=== PATIENT | male | born 1960 | race Caucasian/White ===

== ENCOUNTER → 2017-12-21 16:09 | Outpatient (CLI) | payer BC, SELFPAY ==
[2017-12-21 16:26] LABS: Basophil# 0.01 X10^3/uL; Basophil% 0.2 % (0-1); Eosinophil# 0.06 X10^3/uL; Hematocrit 41.8 % (40-54); Hemoglobin 14.8 g/dl (13.0-16.5); Lymphocyte % 23.3 % (19-41); Mean Corp Hgb Conc 35.4 g/gl (32-36); Mean Corpuscular Hgb 33.4 pg (27.0-32.0); Mean Corpuscular Volume 94.4 fL (80-94); Mean Platelet Vol. 9.9 fl (6.2-12.0); Monocyte% 8.3 % (0-10); Neutrophil # 4.04 X10^3/uL (2.7-7.7); POSITIVE COUNT NO; POSITIVE DIFFERENTIAL NO; POSITIVE MORPHOLOGY NO; Platelet Count 176 K/mm3 (150-450); RBC Distribution Width CV 12.9 % (11.6-14.6); RBC Distribution Width SD 44.2 fl (35.1-43.9); Red Blood Count 4.43 M/mm3 (4.6-6.2)
[2017-12-21 16:57] LABS: ALB/GLOB Ratio 1.1 RATIO (0.9-2.4); AST(SGOT) 38 U/L (15-37); Alanine Aminotransfer ALT/SGPT 67 U/L (16-61); Albumin, Serum 3.7 g/dL (3.2-5.0); Alkaline Phosphatase 82 U/L (45-117); Anion Gap 9 (5-15); BUN 24 mg/dL (7-18); BUN/Creat Ratio 21.1 RATIO (10-20); CPK Total, Creatine Kinase 178 U/L (39-308); Calcium,Total 8.4 mg/dL (8.5-10.1); Chloride 110 mmol/L (98-107); Creatinine, Serum 1.14 mg/dL (0.70-1.30); EST Glomerular Filtration Rate 70 mL/min (>60); Est Glom Filt Rate - Afr Amer 85 mL/min (>60); Globulin 3.3 g/dL (2.2-4.2); Glucose 92 mg/dL (74-106); Potassium 4.3 mmol/L (3.5-5.1); Sodium Level 144 mmol/L (136-145)
== END ==
PROVIDERS: Family Provider Internal Medicine; PCP Internal Medicine; Visit Provider Internal Medicine
DX: R07.9 Chest pain, unspecified (principal)
CPT/HCPCS: 36415; 80053; 82550; 84484; 85025

== ENCOUNTER → 2017-12-22 09:53 | Outpatient (CLI) | payer BC, SELFPAY ==
--- NOTE | 2017-12-22 09:55 | NM_ITS ---
CLINICAL: 56-year-old male with suspected parathyroid adenoma. 99m Tc SESTAMIBI DUAL PHASE PARATHYROID SCINTIGRAPHY COMPARISON: None available FINDINGS: Following the intravenous administration of 26.0 mCi of 99m Tc sestamibi, image acquisitions of the anterior neck at approximately 15 minutes and 2.0 hours post radiopharmaceutical provision reveal: 1. Immediate static blood pool acquisitions demonstrate distribution of pharmaceutical in the right-left thyroid colloid of the vaguely U-shaped thyroid gland. 2. Delayed images depict incomplete washout of the radiotracer from the visualized right-left lobe thyroid parenchyma. NM/Parathyroid Scan IMPRESSION: 1. NEGATIVE 99m Tc SESTAMIBI PARATHYROID IMAGING DUAL PHASE EXAMINATION. 2. There is no definitive typical scintigraphic evidence of parathyroid adenoma on the current evaluation. 3. Persistent visualization of the right-left thyroid colloid may be attributed to goiter formation, potentially thyroiditis. Electronically Signed: Deonte Brumfield DO at 23:44 EDT Tel , Service support ,
== END ==
PROVIDERS: Family Provider Internal Medicine; PCP Internal Medicine; Visit Provider Internal Medicine
DX: E34.9 Endocrine disorder, unspecified (principal)
CPT/HCPCS: 78070; A9500

== ENCOUNTER → 2018-01-12 06:04 | Outpatient (CLI) | payer BC, SELFPAY ==
--- NOTE | 2018-01-12 09:08 | STRESSREP ---
Stress Test Report Exercise myocardial perfusion stress test. 57-year-old man with a history of chest pain. Stress protocol: Resting EKG demonstrates normal sinus rhythm with rate of 64 beats minute normal intervals and noted resting blood pressure 122/88 mmHg. The patient exercised according to regular Fco protocol for a total duration of 10 minutes and 15 seconds. The patient completed 1 minute and 15 seconds into stage IV of the Fco protocol. The maximum heart rate attained was 134 bpm which was 82% of maximum predicted heart rate the maximum workload attained was 12.1 metabolic equivalents. At rest there were no ST or T-wave changes noted suggest ischemia at peak exercise no ST or T-wave changes were noted suggest ischemia no clinical angina was noted occasional premature ventricular complexes were present. The resting blood pressure is 122/88 peak blood pressure 158/70. Myocardial perfusion protocol. 14.3 mCi of technetium 99m sestamibi was injected at rest. The patient exercised according to regular Fco protocol for 10 minutes and 15 seconds attaining 82% maximum predicted heart rate and a workload of 12.1 metabolic equivalents at peak exercise 44.1 mCi of technetium 99m sestamibi was injected stress images were obtained stress and rest images were reconstructed and compared in the short axis vertical long and horizontal long axis. Gated images were also obtained. Perfusion SPECT analysis: Review of the stress images demonstrate normal uptake of tracer noted in all areas of the myocardium the resting images similarly demonstrate normal uptake of tracer noted in all areas of the myocardium. No areas of reversibility are noted suggest ischemia no previous infarct is noted. Gated SPECT analysis: The gated ejection fraction is 71%. Conclusion: Exercise myocardial perfusion stress test with no evidence of ischemia at a high workload. Preserved ejection fraction.
== END ==
PROVIDERS: Family Provider Internal Medicine; PCP Internal Medicine; Visit Provider Internal Medicine
DX: R07.9 Chest pain, unspecified (principal)
CPT/HCPCS: 78452; 93017; A9500; A4216

== ENCOUNTER → 2018-10-13 10:23 | Outpatient (CLI) | payer BC, SELFPAY ==
[2018-10-13 10:40] LABS: Bacteria 0 SEEN /hpf (None Seen); Mucous, Urine 0 SEEN /hpf (<or=2+); Squamous Epithelial Cells - UA 0 SEEN /hpf (0-5)
[2018-10-13 12:01] LABS: Absolute Lymphocyte Count 1.27 X10^3/ul (0.83-4.51); Basophil# 0.02 X10^3/uL; Basophil% 0.4 % (0-1); Color, Urine Yellow (Yellow); Eosinophil# 0.08 X10^3/uL; Eosinophils% 1.7 % (0-5); Glucose, Dipstick Normal (Normal); Hematocrit 42.4 % (40-54); Hemoglobin 15.1 g/dl (13.0-16.5); Ketone-Dipstick Negative (Negative); Leukocyte Esterase-Dipstick Negative /ul (Negative); Lymphocyte # 1.27 X10^3/ul (4.0); Lymphocyte % 26.3 % (19-41); Mean Corp Hgb Conc 35.6 g/gl (32-36); Mean Corpuscular Volume 92.6 fL (80-94); Mean Platelet Vol. 9.9 fl (6.2-12.0); Monocyte# 0.42 X10^3/uL; Monocyte% 8.7 % (0-10); Neutrophil # 3.03 X10^3/uL (2.7-7.7); Neutrophil % 62.7 % (47-70); Nitrite-Dipstick Negative (Negative); Occult Blood-Urine 10 /ul (Negative); Platelet Count 206 K/mm3 (150-450); Protein-Dipstick Negative (Negative); RBC Distribution Width CV 12.7 % (11.6-14.6); RBC Distribution Width SD 42.2 fl (35.1-43.9); Red Blood Count 4.58 M/mm3 (4.6-6.2); Urine Bilirubin Dipstick Negative (Negative); Urine Clarity Clear (Clear); Urine Urobilinogen Normal (Normal); White Blood Count 4.8 K/mm3 (4.4-11.0)
[2018-10-13 12:06] LABS: POSITIVE COUNT NO; POSITIVE DIFFERENTIAL NO; POSITIVE MORPHOLOGY NO
[2018-10-13 12:11] LABS: Red Blood Cells-Urine 0 SEEN /hpf (0-5); White Blood Cells 0-5 SEEN /hpf (0-5)
[2018-10-13 12:24] LABS: Vitamin B12 615 pg/mL (211-911); Vitamin D,25 Hydroxy 48.8 ng/mL (29.95-100.01)
[2018-10-13 12:32] LABS: ALB/GLOB Ratio 1.1 RATIO (0.9-2.4); AST(SGOT) 44 U/L (15-37); Alanine Aminotransfer ALT/SGPT 79 U/L (16-61); Albumin, Serum 3.7 g/dL (3.2-5.0); Alkaline Phosphatase 56 U/L (45-117); Anion Gap 9 (5-15); BUN 22 mg/dL (7-18); BUN/Creat Ratio 22.8 RATIO (10-20); Calcium,Total 8.5 mg/dL (8.5-10.1); Chloride 107 mmol/L (98-107); Creatinine, Serum 0.96 mg/dL (0.70-1.30); EST Glomerular Filtration Rate 85 mL/min (>60); Est Glom Filt Rate - Afr Amer 103 mL/min (>60); Free T3 3.4 pg/mL (2.18-3.98); Globulin 3.4 g/dL (2.2-4.2); Glucose 99 mg/dL (74-106); Potassium 3.9 mmol/L (3.5-5.1); Protein, Total 7.1 g/dL (6.4-8.2); Sodium Level 140 mmol/L (136-145); T4 Free Direct 1.18 ng/dL (0.76-1.46)
[2018-10-13 12:37] LABS: Microalbumin,Random Urine 8.7 mg/L (NO RANGE EST.); Microalbumin:Creatinine Ratio 6.4 mg/g CRE (<30 mg/g CRE)
== END ==
PROVIDERS: Family Provider Internal Medicine; PCP Internal Medicine; Referring Provider Internal Medicine; Visit Provider Internal Medicine
DX: E78.5 Hyperlipidemia, unspecified (principal); E53.8 Deficiency of other specified B group vitamins; E55.9 Vitamin D deficiency, unspecified; E03.9 Hypothyroidism, unspecified; I10 Essential (primary) hypertension
CPT/HCPCS: 36415; 80053; 80061; 81001; 82043; 82306; 82570; 82607; 83704; 84439; 84443; 84481; 85025

== ENCOUNTER → 2019-09-15 11:23 | Outpatient (CLI) | payer OTHER, SELFPAY ==
[2019-09-15 11:14] VITALS: BMI 30.6
--- NOTE | 2019-09-15 11:24 | RAD_ITS ---
STUDY: X-RAY CHEST REASON FOR EXAM: Male, 58 years old. ACUTE BRONCHITIS, COUGH TECHNIQUE: PA and lateral views of the chest. COMPARISON: 12/27/1929 FINDINGS: The lungs are clear and expanded. There is no demonstrated pleural abnormality. Normal size heart. Normal mediastinum and carina. Normal visualized pulmonary arteries. Normal visualized aortic arch and descending thoracic aorta. Normal visualized thoracic spine. Normal visualized ribs, clavicles, and shoulders. There is no demonstrated abnormality of the visualized soft tissue structures of the upper abdomen. RAD/Chest PA and Lateral IMPRESSION: Normal x-ray examination of the chest. Electronically Signed: Deonte Cummins MD at 11:51 EST Tel , Service support ,
== END ==
PROVIDERS: Family Provider Internal Medicine; PCP Internal Medicine; Referring Provider Physician Assistant Surgical; Visit Provider Physician Assistant Surgical
DX: J20.9 Acute bronchitis, unspecified (principal)
CPT/HCPCS: 71046

== ENCOUNTER → 2019-10-12 13:50 | Outpatient (CLI) | payer OTHER, SELFPAY ==
[2019-09-15 11:35] VITALS: BMI 36.2
--- NOTE | 2019-10-12 14:06 | ECHOCS_ITS ---
Reason For Study: TIA, HTN Procedure This was a 2D Doppler, Color Flow transthoracic echocardiogram. The study was technically difficult. Due to body habitus. Contrast injection was performed. Exam performed in department. Left Ventricle Normal LV size. The estimated ejection fraction is 65 %. No evidence for diastolic dysfunction. No regional wall motion abnormalities noted. Right Ventricle Normal RV size. Normal systolic function. Atria Normal left atrium. Normal right atrium. Bubble contrast study negative for right to left interatrial shunt. No doppler evidence for ASD. Mitral Valve There is no mitral valve stenosis. No mitral valve insufficiency. Tricuspid Valve There is no tricuspid stenosis. Unable to estimate RV systolic pressure due to insufficient tricuspid regurgitant envelope. Trivial tricuspid valve insufficiency. Aortic Valve Aortic sclerosis, no stenosis. Trisinus/trileaflet aortic valve. There is no aortic stenosis. No aortic valve insufficiency. Pulmonic Valve There is no pulmonic valvular stenosis. No pulmonic valve insufficiency. Great Vessels Normal aortic root. Pericardium/Pleural No pericardial effusion. Medication 22 gauge I.V. with prn adaptor inserted into right arm. Performed a rapid injection of agitated mix of 9 cc saline and 1cc air to assess for atrial septal defect. Diluted definity 4.0ml given slow IV push to enhance endocardial definition. MMode/2D Measurements & Calculations LVIDd: 5.2 cm IVSd: 1.1 cm Ao root diam: 3.1 cm LVIDs: 3.0 cm LVPWd: 1.2 cm FS: 43.1 % LAV(MOD-bp): 62.2 ml LA A4 area: 20.0 cm2 LA dimension(2D): 3.7 cm LAV(MOD-bp) Indexed: 26.1 ml/m2 LAV(MOD-sp2): 61.4 ml LAV(MOD-sp4): 57.9 ml Time Measurements MV dec time: 0.26 sec Doppler Measurements & Calculations MV E max justin: 73.7 cm/sec Lat Peak E' Justin: 11.1 cm/sec Med Peak E' Justin: 6.7 cm/sec MV A max justin: 78.8 cm/sec E/E' lat: 6.7 E/E' med: 11.0 MV E/A: 0.94 Ao V2 max: 149.6 cm/sec LV V1 max: 115.2 cm/sec PA V2 max: 135.6 cm/sec Ao max P.0 mmHg LV V1 max P.3 mmHg TR max justin: 243.5 cm/sec TR max P.7 mmHg Interpretation Summary The study was technically difficult. Diluted definity 4.0ml given slow IV push to enhance endocardial definition. The estimated ejection fraction is 65 %. No evidence for diastolic dysfunction. Bubble contrast study negative for right to left interatrial shunt. Trivial tricuspid valve insufficiency. The study was technically difficult. Ordering Physician: Dai Toure Referring Physician: Dai Toure Performed By: Genny Pillai, JERRYCS, RVT
--- NOTE | 2019-10-12 14:06 | CDU_ITS ---
Reason For Study: TIA Rt. Velocities/BP Lt. Velocities/BP Prox CCA 106.0/22.6 cm/sec. Prox CCA 100.3/27.8 cm/sec. Mid CCA 121.7/29.1 cm/sec. Mid CCA 109.1/27.8 cm/sec. Dist CCA 89.1/17.3 cm/sec. Dist CCA 93.8/33.3 cm/sec. Prox ICA 91.7/18.6 cm/sec. Prox ICA 83.9/23.4 cm/sec. Mid ICA 90.4/17.3 cm/sec. Mid ICA 97.4/17.6 cm/sec. Dist ICA 87.8/26.5 cm/sec. Dist ICA 81.4/32.3 cm/sec. Rt. ICA/CCA = .8. Lt. ICA/CCA = .9. Prox ECA 125.6/18.6 cm/sec. Prox ECA 122.9/24.3 cm/sec. Rt. Vert. 42.8/7.8 cm/sec. Lt. Vert. 48.3/17.6 cm/sec. Right Extracranial There is intimal thickening but no significant atherosclerotic plaque noted in the right common carotid artery. There is intimal thickening but no significant atherosclerotic plaque noted in the right internal carotid artery. There is intimal thickening but no significant atherosclerotic plaque noted in the right external carotid artery. Antegrade flow is noted in the right vertebral artery. Left Extracranial There is intimal thickening but no significant atherosclerotic plaque noted in the left common carotid artery. There is intimal thickening but no significant atherosclerotic plaque noted in the left internal carotid artery. There is intimal thickening but no significant atherosclerotic plaque noted in the left external carotid artery. Antegrade flow is noted in the left vertebral artery. Procedure Carotid Duplex [id number]. The exam was diagnostic. Exam performed in department. Interpretation Summary No significant atherosclerotic plaque or stenosis noted in the internal carotid arteries bilaterally. Flow within the vertebral arteries is antegrade bilaterally. Ordering Physician: Dai Toure Performed By: Jamie Pereyra RVT
--- NOTE | 2019-10-12 16:45 | MRI_ITS ---
STUDY: MRI BRAIN WITHOUT CONTRAST REASON FOR EXAM: Male, 58 years old. Word finding difficulty TECHNIQUE: Standardized multiplanar fat and water weighted pulse sequences were obtained. COMPARISON: 10 April 2014 FINDINGS: Brain parenchyma is intact without focal lesions, mass effect, extra parenchymal fluid collections, hydrocephalus or herniation. Major vascular flow structures are intact. Craniocervical junction is unremarkable. MRI/Brain without Contrast IMPRESSION: 1. Unremarkable brain MRI. Electronically Signed: Louis Hanna, at 18:25 EST Tel , Service support ,
== END ==
PROVIDERS: PCP Internal Medicine; Referring Provider Internal Medicine; Visit Provider Internal Medicine
DX: R47.89 Other speech disturbances (principal); Z86.73 Personal history of transient ischemic attack (TIA), and cerebral infarction without residual deficits
CPT/HCPCS: 70551; 93306; 93880; Q9957; A4216; C8929

== ENCOUNTER → 2019-10-28 10:10 | Outpatient (CLI) | payer OTHER, SELFPAY ==
[2019-09-15 11:35] VITALS: BMI 36.2
--- NOTE | 2019-10-28 10:12 | US_ITS ---
STUDY: ABDOMINAL ULTRASOUND REASON FOR EXAM: Male, 58 years old. ELEVATED LIVER ENZYMES TECHNIQUE: Transabdominal ultrasound was performed with real-time and static yin scale imaging. TECHNICAL QUALITY: Adequate. COMPARISON: None. FINDINGS: Liver: The liver measures 16.8 cm. There is increased echogenicity consistent with fatty infiltration. The bile ducts are within normal limits. There is hepatic color flow. The direction of portal flow is hepatopetal. There is no demonstrated mass lesion. Portal vein measurement: Gallbladder: Normal distended gallbladder. The gallbladder wall measures 2 mm. There is a negative sonographic Durbin''s sign. There is no pericholecystic fluid. There are no gallstones. Common Bile Duct (C.B.D.): The common bile duct measures 3 mm. Pancreas: There is nonvisualization of the pancreas. t. Spleen: There is splenomegaly. The spleen measures 12.2 cm. Right Kidney: Normal size of the right kidney. The right kidney measures 12.9 cm. Normal renal cortex. The right cortex measures 1.6 cm. There is no demonstrated renal mass or cyst. There is no right hydronephrosis. Left Kidney: Normal size of the left kidney. The left kidney measures 12.9 cm. Normal renal cortex. The left cortex measures 1.8 cm. There is no demonstrated renal mass or cyst. There is no left hydronephrosis. Aorta: No abdominal aortic aneurysm. I.V.C.: The IVC is patent. There is no ascites. US/Abdomen Complete IMPRESSION: 1. Fatty infiltration of the liver. 2. Mild splenomegaly. Electronically Signed: Deonte Cummins MD at 18:20 EST Tel , Service support ,
== END ==
PROVIDERS: PCP Internal Medicine; Referring Provider Internal Medicine; Visit Provider Internal Medicine
DX: R74.8 Abnormal levels of other serum enzymes (principal)
CPT/HCPCS: 76700

== ENCOUNTER → 2019-11-17 16:08 | Outpatient (CLI) | payer OTHER, SELFPAY ==
[2019-09-15 11:35] VITALS: BMI 36.2
[2019-11-17 17:40] LABS: AST(SGOT) 61 U/L (15-37); Alanine Aminotransfer ALT/SGPT 118 U/L (16-61); Albumin, Serum 3.6 g/dL (3.2-5.0); Alkaline Phosphatase 68 U/L (45-117); Bilirubin, Direct 0.13 mg/dL (0.00-0.30); Globulin 3.4 g/dL (2.2-4.2)
[2019-11-20 11:53] LABS: Hepatitis A AB, Total Negative (Negative)
[2019-11-20 19:13] LABS: Anti-Mitochondrial AB 26.5 Units (0.0-20.0)
== END ==
PROVIDERS: PCP Internal Medicine; Referring Provider Internal Medicine Gastroenterology; Visit Provider Internal Medicine Gastroenterology
DX: B15.9 Hepatitis A without hepatic coma (principal)
CPT/HCPCS: 36415; 80076; 83516; 86708

== ENCOUNTER → 2020-02-13 15:27 | Outpatient (CLI) | payer OTHER, SELFPAY ==
[2019-09-15 11:35] VITALS: BMI 36.2
[2020-02-13 18:15] LABS: AST(SGOT) 43 U/L (15-37); Alanine Aminotransfer ALT/SGPT 77 U/L (16-61); Albumin, Serum 3.6 g/dL (3.2-5.0); Alkaline Phosphatase 68 U/L (45-117); Bilirubin, Direct 0.17 mg/dL (0.00-0.30); Globulin 3.4 g/dL (2.2-4.2)
[2020-02-16 13:21] LABS: Anti-Mitochondrial AB 26.2 Units (0.0-20.0)
== END ==
PROVIDERS: PCP Internal Medicine; Referring Provider Internal Medicine Gastroenterology; Visit Provider Internal Medicine Gastroenterology
DX: B15.9 Hepatitis A without hepatic coma (principal); K76.0 Fatty (change of) liver, not elsewhere classified
CPT/HCPCS: 36415; 80076; 83516

== ENCOUNTER → 2020-08-17 10:54 | Outpatient (CLI) | payer OTHER, SELFPAY ==
[2019-09-15 11:35] VITALS: BMI 36.2
[2020-08-17 11:35] LABS: Absolute Neutrophil Count 9.7 X10^3/uL (2.0-7.7); Basophil# 0.15 X10^3/uL; Eosinophil# 0.76 X10^3/uL; Eosinophils% 5.2 % (0-5); Lymphocyte % 17.2 % (19-41); Mean Corp Hgb Conc 35.7 g/dL (32-36); Mean Corpuscular Hgb 33.6 pg (27.0-32.0); Mean Corpuscular Volume 94.2 fL (80-94); Mean Platelet Vol. 9.8 fl (6.2-12.0); Monocyte# 0.89 X10^3/uL; Monocyte% 6.1 % (0-10); NRBC Flagged by Analyzer 0 % (0-5); Neutrophil # 9.69 X10^3/uL (2.7-7.7); Neutrophil % 66.9 % (47-70); Platelet Count 222 K/mm3 (150-450); RBC Distribution Width CV 12.9 % (11.6-14.6); RBC Distribution Width SD 43.9 fl (35.1-43.9); Red Blood Count 4.46 M/mm3 (4.6-6.2); White Blood Count 14.5 K/mm3 (4.4-11.0)
[2020-08-17 12:04] LABS: D-Dimer Quantitative (DVT/PE) 9.66 FEU/ug/m (0.27-0.49)
[2020-08-17 12:07] LABS: ALB/GLOB Ratio 1.1 RATIO (0.9-2.4); AST(SGOT) 39 U/L (15-37); Alanine Aminotransfer ALT/SGPT 69 U/L (16-61); Albumin, Serum 3.2 g/dL (3.2-5.0); Alkaline Phosphatase 78 U/L (45-117); Anion Gap 7 (5-15); BUN 24 mg/dL (7-18); BUN/Creat Ratio 22.6 RATIO (10-20); Calcium,Total 8.3 mg/dL (8.5-10.1); Chloride 102 mmol/L (98-107); Creatinine, Serum 1.06 mg/dL (0.70-1.30); EST Glomerular Filtration Rate 76 mL/min (>60); Est Glom Filt Rate - Afr Amer 92 mL/min (>60); Globulin 2.9 g/dL (2.2-4.2); Glucose 103 mg/dL (74-106); Potassium 3.4 mmol/L (3.5-5.1); Protein, Total 6.1 g/dL (6.4-8.2); Sodium Level 134 mmol/L (136-145)
[2020-08-21 07:04] LABS: SARS-COV-2 TOTAL ABS Nonreactive (Nonreactive)
== END ==
PROVIDERS: PCP Internal Medicine; Referring Provider Internal Medicine; Visit Provider Internal Medicine
DX: Z01.84 Encounter for antibody response examination (principal)
CPT/HCPCS: 36415; 80053; 85025; 85379; 86140; 86769

== ENCOUNTER 2020-08-19 18:33 | Emergency (ER) | payer OTHER, SELFPAY ==
[2019-09-15 11:35] VITALS: BMI 36.2
[2020-08-19 18:34] VITALS: BP 132/70; PULSE 75; RESP 17; TEMP 36.6; O2SAT 98; BMI 38.2
--- NOTE | 2020-08-19 20:13 | CT_ITS ---
STUDY: CTA CHEST REASON FOR EXAM: Male, 59 years old. ELEVATED DDIMER,CHEST PAIN,GERD AND A RASH SINCE LUNCH TIME TODAY RADIATION DOSAGE (If Supplied By Facility): CTDIvol = ( 12.59 ) mGy, DLP = ( 514.03 ) mGycm TECHNIQUE: The examination was performed with the intravenous administration of IV 100mL Isovue-370. Post-processing of the angiographic images was performed, with multiplanar reformation and 3D reconstruction. Individualized dose optimization techniques were used for this CT. COMPARISON: None. FINDINGS: Normal enhancement of the main pulmonary artery and right and left pulmonary arteries. Normal enhancement of the bilateral peripheral pulmonary arteries. There is no demonstrated pulmonary embolism. Normal thoracic aorta and visualized great vessels. There is no demonstrated aortic dissection. Normal heart and pericardium. Normal mediastinum. Normal hilar regions. Normal visualized trachea and bronchi. The lungs are well expanded. There is minor atelectasis within the dependent portion lungs.. No focal infiltration or pulmonary nodules. Normal pleura. Multiple small probably benign lymph nodes within the axilla bilaterally Normal osseous structures. Nonspecific fatty infiltration of the liver.. CT/CTA Chest W/WO Contrast IMPRESSION: Minor atelectasis within the dependent portion lungs. No acute abnormalities. No evidence for pulmonary embolus Electronically Signed: Luis Stern MD at 21:34 EST , Service support ,
[2020-08-19 21:56] VITALS: BP 144/71; PULSE 71; RESP 16; O2SAT 99
--- NOTE | 2020-08-19 22:13 | ED.DEP ---
ED Disposition - Plan for ED Patient: Prescriptions: Prednisone [Deltasone] 40 mg PO BID #12 tab Prescription Printed Referrals: Dai Toure DO [Primary Care Provider] -
--- NOTE | 2020-08-19 22:17 | ED.VISSUMM ---
- ER Visit Summary Date of Service: 08/19/20 Chief Complaint: Elevated D-dimer History of Present Illness: The patient is a 59 M presenting with elevated D-dimer. Patient had outpatient blood work performed which showed D-dimer over 9. He was sent in for CTA chest to rule out PE. He has been seen by his primary care physician multiple times recently. He has lost his sense of taste and smell. He has had fatigue. He has had chills. Denies fever. He has a diffuse rash of his upper trunk and lower extremities. He states initially this was itchy but the itchiness has improved. He states he did have a lesion in his mouth which is also resolved. He was seen by dermatology today who feels this is likely MIS-A. He has had a negative Covid test. They are awaiting Covid antibody testing. He did have recent travel to [place] and his mom has history of DVT. No other PE/DVT risk factors. He denies chest pain or shortness of breath. Physical Examination: Vitals are stable. Patient is afebrile. Alert no acute distress. HEENT exam is unremarkable. Neck is supple. Lungs are clear and equal bilaterally. Heart is regular rate and rhythm. Abdomen is soft nontender nondistended. Extremities are unremarkable. Skin is diffuse erythematous rash, no mucous membrane lesions No focal neurologic deficit. Remainder of exam is unremarkable. Emergency Department Course and Treatment: CTA chest was obtained and shows minor atelectasis within the dependent portion lungs. No acute abnormalities. No evidence for pulmonary embolus. Discussed with patient's primary care physician Dr. Toure who knows him well. She recommends starting him on 40 mg of prednisone twice a day. She will follow up with the patient. 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 Discussed with patient, he will follow-up with his options trader and his primary care physician. Advised return to ED for worsening complaints. Disposition: Discharge home Impression: Rash, elevated D-dimer This note was generated with WatchGuardation software. It may contain incorrect words, spelling, and punctuation that were not noted in review of the chart prior to signing ED Disposition - Plan for ED Patient: Disposition: Home or Assisted Living Prescriptions: Prednisone [Deltasone] 40 mg PO BID #12 tab Prescription Printed Referrals: Dai Toure DO [Primary Care Provider] -
[2020-08-19] MEDS: predniSONE 20 MG Tablet 40 MG PO (22:27)
== END 2020-08-19 22:27 | disposition home or self-care (01) ==
PROVIDERS: Emergency Provider Emergency Medicine; PCP Internal Medicine
DX: R79.89 Other specified abnormal findings of blood chemistry (principal); R21 Rash and other nonspecific skin eruption; I10 Essential (primary) hypertension; E78.00 Pure hypercholesterolemia, unspecified; Z79.899 Other long term (current) drug therapy
CPT/HCPCS: 71275; 99284; Q9967; A4216

== ENCOUNTER → 2020-08-21 14:19 | Outpatient (CLI) | payer OTHER, SELFPAY ==
[2020-08-19 18:34] VITALS: BMI 38.2
--- NOTE | 2020-08-21 14:26 | ECHOCS_ITS ---
Reason For Study: CP/SOB Procedure This was a 2D Doppler, Color Flow transthoracic echocardiogram. The study was technically difficult. Exam performed in department. Left Ventricle Normal LV size. Left ventricular systolic function is normal. The estimated ejection fraction is 60 %. No regional wall motion abnormalities noted. Right Ventricle Normal RV size. Normal systolic function. Atria Normal left atrium. Normal right atrium. Mitral Valve Normal mitral valve. Tricuspid Valve Normal tricuspid valve. Mild (1+) tricuspid valve insufficiency. Pulmonary artery systolic pressure is 40 mmHg. Aortic Valve Normal aortic valve. Trisinus/trileaflet aortic valve. Pulmonic Valve Normal pulmonic valve. Great Vessels Normal aortic root. The pulmonary artery is normal size. Normal inferior vena cava. Pericardium/Pleural No pericardial effusion. Medication 22 gauge I.V. with prn adaptor inserted into left arm. Diluted definity 4ml given slow IV push to enhance endocardial definition. MMode/2D Measurements & Calculations LVIDd: 5.4 cm IVSd: 0.94 cm Ao root diam: 3.2 cm LVIDs: 3.4 cm LVPWd: 1.0 cm RVDd: 3.8 cm FS: 37.1 % LAV(MOD-bp): 40.1 ml LVAd ap4: 33.0 cm2 SV(MOD-sp4): 79.1 ml LAV(MOD-bp) Indexed: 16.6 ml/m2 EDV(MOD-sp4): 110.6 ml LAV(MOD-sp2): 44.4 ml EDV(sp4-el): 113.9 ml LAV(MOD-sp4): 37.0 ml LVAs ap4: 15.9 cm2 ESV(MOD-sp4): 31.5 ml ESV(sp4-el): 32.2 ml EF(MOD-sp4): 71.5 % EF(sp4-el): 71.7 % SV(sp4-el): 81.7 ml LA A4 area: 16.3 cm2 LA dimension(2D): 3.8 cm RA A4 area: 14.3 cm2 Time Measurements MV dec time: 0.25 sec Doppler Measurements & Calculations MV E max justin: 123.1 cm/sec Lat Peak E' Justin: 12.9 cm/sec Med Peak E' Justin: 11.6 cm/sec MV A max justin: 76.3 cm/sec E/E' lat: 9.5 E/E' med: 10.7 MV E/A: 1.6 Ao V2 max: 199.7 cm/sec LV V1 max: 143.0 cm/sec PA V2 max: 145.5 cm/sec Ao max P.0 mmHg LV V1 max P.2 mmHg TR max justin: 312.9 cm/sec TR max P.2 mmHg Interpretation Summary Normal LV size. Left ventricular systolic function is normal. The estimated ejection fraction is 60 %. Mild (1+) tricuspid valve insufficiency. Pulmonary artery systolic pressure is 40 mmHg. Contrast injection was performed. Ordering Physician: Dai Toure Referring Physician: Dai Toure Performed By: Ca Marr RDCS
--- NOTE | 2020-08-21 14:26 | EKG12_ITS ---
Test Reason : ROUTINE Blood Pressure : / mmHG Vent. Rate : 078 BPM Atrial Rate : 078 BPM P-R Int : 132 ms QRS Dur : 094 ms QT Int : 382 ms P-R-T Axes : 053 029 023 degrees QTc Int : 435 ms Normal sinus rhythm Normal ECG Confirmed by AUSTIN ARCHER, MYNOR ([id number]), dictionary editor DONN CRUZ ([id number]) on 08/22/2020 11:20:59 AM Referred By: Dai Toure Confirmed By:MYNOR AVILA MD
== END ==
PROVIDERS: PCP Internal Medicine; Referring Provider Internal Medicine; Visit Provider Internal Medicine
DX: R07.9 Chest pain, unspecified (principal); R60.0 Localized edema; R06.00 Dyspnea, unspecified
CPT/HCPCS: 93005; 93306; Q9957; A4216; C8929

== ENCOUNTER → 2020-09-02 | Outpatient (CLI) | payer OTHER, SELFPAY ==
[2020-08-19 18:34] VITALS: BMI 38.2
[2020-09-02 09:59] LABS: Hemoglobin 14.6 g/dL (13.0-16.5); Mean Corpuscular Hgb 33.5 pg (27.0-32.0); Mean Corpuscular Volume 98.6 fL (80-94); Platelet Count 194 K/mm3 (150-450); RBC Distribution Width CV 13.6 % (11.6-14.6); RBC Distribution Width SD 49.7 fl (35.1-43.9); Red Blood Count 4.36 M/mm3 (4.6-6.2); White Blood Count 9.1 K/mm3 (4.4-11.0)
[2020-09-02 10:05] LABS: Erythrocyte Sedimentation Rate 4 mm/hr (0-20)
[2020-09-02 10:16] LABS: ALB/GLOB Ratio 1.3 RATIO (0.9-2.4); AST(SGOT) 58 U/L (15-37); Alanine Aminotransfer ALT/SGPT 149 U/L (16-61); Albumin, Serum 3.5 g/dL (3.2-5.0); Alkaline Phosphatase 81 U/L (45-117); Anion Gap 9 (5-15); BUN 30 mg/dL (7-18); BUN/Creat Ratio 32.3 RATIO (10-20); CRP, High Sensitivity Cardiac 0.43 mg/L; Calcium,Total 8.6 mg/dL (8.5-10.1); Chloride 104 mmol/L (98-107); Creatinine, Serum 0.93 mg/dL (0.70-1.30); EST Glomerular Filtration Rate 88 mL/min (>60); Est Glom Filt Rate - Afr Amer 106 mL/min (>60); Globulin 2.7 g/dL (2.2-4.2); Glucose 93 mg/dL (74-106); Potassium 3.9 mmol/L (3.5-5.1); Protein, Total 6.2 g/dL (6.4-8.2); Sodium Level 139 mmol/L (136-145)
[2020-09-02 11:23] LABS: D-Dimer Quantitative (DVT/PE) 0.52 FEU/ug/m (0.27-0.49)
== END | disposition home or self-care (01) ==
LOC: LABSPEC 09:44
PROVIDERS: PCP Internal Medicine; Visit Provider Internal Medicine
DX: R74.8 Abnormal levels of other serum enzymes (principal); R60.0 Localized edema; D72.829 Elevated white blood cell count, unspecified
CPT/HCPCS: 80053; 85027; 85379; 85652; 86141

== ENCOUNTER 2022-09-30 13:00 | Outpatient (RCR) | payer OTHER, SELFPAY ==
--- NOTE | 2022-07-28 12:20 | HP.PTEVAL ---
Patient's Visit Information MYNOR BERTRAND is a 61 year old M referred to Physical Therapy by URSULA MUNOZ with a diagnosis of Right THR Posterior Approach 07/20/22. Date of Evaluation: 07/28/22 Physical Therapist: Jeanine Horta DPT - Visit Plan Frequency: 3x /Week Duration: 4 Weeks Plan: Right THR 07/20/22- Posterior Approach- Total Hip Precautions- Focus on abductor strength of right hip per MD recommendation- also include core strength/stabilization, proprioception and functional mobility. - Subjective Right Total Hip Replacement Jul 20, 2022- in [place]-he went home same day. Fully I prior to surgery- used crutches and a cane prior to surgery- wear and tear due to high dosage of prednisone. Lives in a 3 story home- he goes downstairs to work but main living area is on the first floor- 3 steps to enter- with HR- no problems getting in/out. He did have pain day 2-3 but its much better. He is doing exercises at home (ankle pumps, heel slides, hip abduction supine and SAQ). Pain is located on the lateral aspect of the hip and radiates to the knee. Does have some back pain in the AM- Sleep: in bed- not disturbed. Worst: 5/10 Agg: sitting to long, Eases: exercises. He is still taking pain medication- has not had to do any muscle relaxers- one tab of oxycodone and Tylenol. Best: 0/10 currently. Describes the pain as shooting- feels like he is getting stuck with needles. Does have N/T in the toes in the evenings and gets a little restless. Is using ice PRN. Work: sitting at his desk- plans to go back to work next week- works 2.5 days a week. Goals: get back to all of his normal ADL's. Prior to surgery was walking a lot- mowing. PMHx: HTN Meds: Lisinopril, Synthroid, Simvastatin- Oxycodone, Celebrex, Asprin, Colazopam - Objective Posture: fair throughout. Gait: FWW- decreased stance on the right LE- mild hip drop- can ambulate with straight cane- decreased step length. Stairs: asc/desc 8 non recip with single HR and cane- can perform recip with cueing. HR/TR: able with UE A. SLS: weight shift. ROM: WFL in all planes with restrictions. Strength: Core: fair minus, Hip: Flexion: 3.6 (Can SLR but unable to maintain) Extn: 37, Abd/Add: 4/5, IR/ER iso at neutral: 4/5, Knee: 5/5 Ankle: 5/5. Flex: HS: moderate, Gastroc: moderate - Balance/Special Test Scores Lower Extremity Functional Score: 26 TUG Test Time Seconds: 8.52 WOMAC Total Score: 28 WOMAC Percentatge: 70.8400 - Goals Goal 1:: Patient will be I with HEP and progression Goal Time Frame: 4-6 Weeks Goal 2:: Patient will ambulate >300 feet with a normalized gait pattern and no AD Goal Time Frame: 4-6 Weeks Goal 3:: Patient will asc/desc 8 stairs recip with 1 HR Goal Time Frame: 4-6 Weeks Goal 4:: Patient will report 80% improvement Goal Time Frame: 4-6 Weeks - Rehabilitation Potential Physical Therapy Diagnosis: Patient presents with hypomobility- he has decreased LE and core strength/stabilization, proprioception., fex and muscular endurance s/p right THR leading to abnormal gait and decreased ability to perform ADL's. - Anticipated Interventions Patient/Client Instruction: Educate patient on: Benefits of Fitness Program Therapeutic Exercise to Include: Strength training, Endurance training, Balance training, Coordination, Agility training, Body mechanics, Postural training, Flexibilty training, Gait and locomotor training, Neuromotor development, Dynamic Lumbar Stabilization For the Purpose of:: To improve muscle performance and motor function Cryotherapy (ice pack, ice massage): Yes Thermo therapy (hot pack): Yes Ultrasound (thermal/non thermal): No Thank you for the opportunity to evaluate your patient. For Medicare and Medicare HMO plans, please review the plan of care and approve it. It will need to be FAXED BACK to us at [phone] for Medicare purposes. For Medicare only, by signing this I certify the plan of care. Please let me know if there are questions or concerns regarding this plan of care. Physician Signature: Date:
--- NOTE | 2022-08-26 14:03 | HP.PTREVAL_ITS ---
URSULA MUNOZ, It has been my pleasure to treat MYNOR BERTRAND over the last 9 visits for Right THR Posterior Approach 07/20/22. Please see the progress note below for an update on the physical therapy plan of care! Subjective: Patient reports that his hip isn't bad. He works at home- he uses a swivel chair-he bends his knees and rotates and it puts pressure on his hip. So he has pain in the groin and radiates down the femur into the knee. He changed the chair he was sitting on and feels much better after he moves. He is walking at the [employer]- 4 laps and then did 2 laps and it was better. Objective/Function: Posture: fair throughout. Gait: no AD- mildly antalgic with decrease stance Stairs: asc/desc 8 recip with no HR HR/TR: able with UE A. SLS: 5-10 sec ROM: WFL in all planes with restrictions. Strength: Core: fair minus, Hip: Flexion: 18 Extn: 55, Abd/Add: 4+/5, IR/ER iso at neutral: 4+/5, Knee: 5/5 Ankle: 5/5. Flex: HS: moderate, Gastroc: moderate Plan Plan: 08/26/22: Continue 2x a week for 4 weeks with progression towards goals. IE: Right THR 07/20/22- Posterior Approach- Total Hip Precautions- Focus on abductor strength of right hip per MD recommendation- also include core strength/stabilization, proprioception and functional mobility. Balance/Gait/Functional tests - Balance/Special Test Scores Lower Extremity Functional Score: 42 TUG Test Time Seconds: 8.52 Tug Test: <10 sec.=free mobile WOMAC Total Score: 28 WOMAC Percentage: 70.8400 Goals Goal 1:: Patient will be I with HEP and progression Goal Time Frame: 4-6 Weeks Goal 2:: Patient will ambulate >300 feet with a normalized gait pattern and no AD Goal Time Frame: 4-6 Weeks Goal 3:: Patient will asc/desc 8 stairs recip with 1 HR Goal Time Frame: 4-6 Weeks Goal 4:: Patient will report 80% improvement Goal Time Frame: 4-6 Weeks Anticipated Interventions Patient/Client Instruction: Educate patient on: Benefits of Fitness Program Therapeutic Exercise to Include: Strength training, Endurance training, Balance training, Coordination, Agility training, Body mechanics, Postural training, Flexibilty training, Gait and locomotor training, Neuromotor development, Dynamic Lumbar Stabilization For the Purpose of:: To improve muscle performance and motor function Cryotherapy (ice pack, ice massage): Yes Thermo therapy (hot pack): Yes Ultrasound (thermal/non thermal): No Please do not hesitate to contact me at [phone] by phone or if you have questions or concerns regarding this new plan of care! Sincerely, DELMER GatesT
--- NOTE | 2022-09-30 16:13 | HP.PTDCSUM_ITS ---
It has been my pleasure to treat MYNOR BERTRAND referred by URSULA MUNOZ, with the diagnosis of Right THR Posterior Approach 07/20/22 for a total of 18 visit(s). Discharge Date: Please see the following information for a summary of their discharge status. Subjective: Patient reports that he is doing great, he is happy with his progress and feels that he will continue at the [employer] and maybe get a membership to [facility] Right Hip Pain Intensity (Out of 10): 0 % Improvement: 95 Objective/Function: Posture: fair throughout. Gait: no AD- no deviation noted Stairs: asc/desc 8 recip with no HR HR/TR: able with UE A. SLS: 20 sec ROM: WFL in all planes with restrictions. Strength: Core: fair minus, Hip: Flexion: 25 Extn: 70, Abd/Add: 4+/5, IR/ER iso at neutral: 4+/5, Knee: 5/5 Ankle: 5/5. Flex: HS: moderate, Gastroc: moderate Goal 1:: Patient will be I with HEP and progression Goal Progress: Goal Met Goal 2:: Patient will ambulate >300 feet with a normalized gait pattern and no AD Goal Progress: Goal Met Goal 3:: Patient will asc/desc 8 stairs recip with 1 HR Goal Progress: Goal Met Goal 4:: Patient will report 80% improvement Goal Progress: Goal Met Plan: 09/30/21: Discharge to [facility]. 08/26/22: Continue 2x a week for 4 weeks with progression towards goals. IE: Right THR 07/20/22- Posterior Approach- Total Hip Precautions- Focus on abductor strength of right hip per MD recommendation- also include core strength/stabilization, proprioception and functional mobility. If there are questions or concerns regarding this patient's physical therapy, please feel free to call me at [phone]. Thank you for the referral of this patient. Sincerely, Jeanine Horta, DELMERT Balance/Gait/Functional tests - Balance/Special Test Scores Lower Extremity Functional Score: 42 TUG Test Time Seconds: 8.52 Tug Test: <10 sec.=free mobile WOMAC Total Score: 8 WOMAC Percentage: [phone]
== END 2022-09-30 19:00 | disposition home or self-care (01) ==
LOC: PT 13:00
PROVIDERS: PCP Internal Medicine
DX: Z96.641 Presence of right artificial hip joint (principal)
CPT/HCPCS: 97110; 97162; 97164

== ENCOUNTER → 2022-10-30 | Outpatient (CLI) | payer OTHER, SELFPAY ==
--- NOTE | 2022-10-30 13:02 | ECHOCS_ITS ---
Reason For Study: CSA Procedure This was a 2D Doppler, Color Flow transthoracic echocardiogram. The study was technically difficult. Contrast injection was performed. Exam performed in department. Left Ventricle Normal LV size. Mild concentric left ventricular hypertrophy. The left ventricular ejection fraction is 65 %. Right Ventricle Normal RV size. Mild global right ventricular systolic dysfunction. Atria The left atrium is moderately enlarged. The right atrium is not well visualized. Mitral Valve The mitral valve is structurally normal. No prolapse or stenosis seen. Tricuspid Valve Trivial tricuspid valve insufficiency. Pulmonary artery systolic pressure is 39 mmHg. Mild pulmonary hypertension. Aortic Valve Normal aortic valve. Pulmonic Valve The pulmonic valve is not well visualized. Trivial eccentric pulmonic valve insufficiency. Great Vessels Normal sized aortic root. Pericardium/Pleural No pericardial effusion. Medication 22 gauge I.V. with prn adaptor inserted into right arm. Diluted definity 2ml given slow IV push to enhance endocardial definition. MMode/2D Measurements & Calculations LVIDd: 5.3 cm IVSd: 1.4 cm Ao root diam: 3.2 cm LVIDs: 3.2 cm LVPWd: 0.91 cm FS: 39.8 % LVAd ap4: 33.1 cm2 SV(MOD-sp4): 75.3 ml SV(sp4-el): 79.0 ml LVLd ap4: 8.9 cm EDV(MOD-sp4): 100.6 ml EDV(sp4-el): 104.2 ml LVAs ap4: 15.1 cm2 LVLs ap4: 7.7 cm ESV(MOD-sp4): 25.3 ml ESV(sp4-el): 25.1 ml EF(MOD-sp4): 74.9 % EF(sp4-el): 75.9 % LA dimension(2D): 4.3 cm Time Measurements MV dec time: 0.27 sec Doppler Measurements & Calculations MV E max justin: 73.0 cm/sec Lat Peak E' Justin: 12.8 cm/sec Med Peak E' Justin: 9.5 cm/sec MV A max justin: 58.1 cm/sec E/E' lat: 5.7 E/E' med: 7.7 MV E/A: 1.3 MV V2 max: 81.3 cm/sec MV dec slope: 278.1 cm/sec2 Ao V2 max: 125.8 cm/sec MV max P.6 mmHg Ao max P.3 mmHg MV V2 mean: 50.0 cm/sec Ao V2 mean: 81.0 cm/sec MV mean P.1 mmHg Ao mean P.2 mmHg MV V2 VTI: 36.9 cm Ao V2 VTI: 27.5 cm AV (velocity ratio): 0.90 LV V1 max: 121.1 cm/sec PA V2 max: 137.2 cm/sec TR max justin: 294.4 cm/sec LV V1 max P.9 mmHg PA V2 mean: 89.2 cm/sec TR max P.7 mmHg LV V1 mean P.1 mmHg LV V1 mean: 81.8 cm/sec LV V1 VTI: 24.8 cm ECHO/Echo Complete W/ Contrast Interpretation Summary The study was technically difficult. Mild concentric left ventricular hypertrophy. The left ventricular ejection fraction is 65 %. Mild global right ventricular systolic dysfunction. The left atrium is moderately enlarged. Mild pulmonary hypertension. Ordering Physician: Bob Brandt V Referring Physician: ELMER PALACIOS Performed By: Jessy Skinner RCS
== END | disposition home or self-care (01) ==
LOC: CVS 12:59
PROVIDERS: PCP Internal Medicine; Visit Provider Internal Medicine Pulmonary Disease
DX: G47.31 Primary central sleep apnea (principal)
CPT/HCPCS: 93306; Q9957; A4216; C8929

== ENCOUNTER → 2022-12-24 | Outpatient (CLI) | payer OTHER, SELFPAY ==
--- NOTE | 2022-12-24 14:09 | VDLE_ITS ---
Reason For Study: LEG SWELLING RIGHT LEFT GSV is normal. CFV is compressible, spontaneous, phasic, CFV is compressible, spontaneous, phasic, competent, and demonstrates normal competent and demonstrates normal augmentation. augmentation. FV is compressible, spontaneous, phasic, competent and demonstrates normal augmentation. POP V is compressible, spontaneous, phasic, competent and demonstrates normal augmentation. T/P Trunk is compressible. PTV is compressible. RT PerV is compressible. Procedure This is a venous duplex using B-mode, color flow and spectral Doppler. Exam performed in department. The exam was diagnostic. A preliminary report was called and/or faxed to Dr. Toure's office. VL/Venous Duplex US, Unilateral Interpretation Summary Deep veins of the right lower extremity are patent and compressible segmentally . There is no evidence of right lower extremity deep vein thrombosis. Valvular competence bony ears intact within the proximal deep venous system on the right . The right great saphenous vein a ppears patent and compressible segmentally. The left common femoral vein is patent and compressib le . Ordering Physician: Dai Toure Referring Physician: Dai Toure Performed By: Ton Almodovar RVAaliyah
== END | disposition home or self-care (01) ==
LOC: CVS 14:04
PROVIDERS: PCP Internal Medicine; Referring Provider Internal Medicine; Visit Provider Internal Medicine
DX: M79.89 Other specified soft tissue disorders (principal)
CPT/HCPCS: 93971

== ENCOUNTER → 2022-12-25 | Outpatient (CLI) | payer OTHER, SELFPAY ==
--- NOTE | 2022-12-25 07:59 | US_ITS ---
STUDY: ABDOMINAL ULTRASOUND - RIGHT UPPER QUADRANT REASON FOR VISIT: Male, 62 years old NICOLASA JESUS ENZYMES . Fatty infiltration of the liver. TECHNIQUE: Ultrasound evaluation of the right upper quadrant was performed with real-time and static yin-scale imaging. TECHNICAL QUALITY: Adequate. COMPARISON: None. FINDINGS: Liver: The liver measures 17.2 cm. There is increased echogenicity consistent with fatty infiltration. The bile ducts are within normal limits. There is hepatic color flow. The direction of portal flow is hepatopetal. There is no demonstrated mass lesion. Gallbladder: Normal distended gallbladder. The gallbladder wall measures 4 mm. There is a negative sonographic Durbin''s sign. There is no pericholecystic fluid. There are no gallstones. Common Bile Duct (C.B.D.): The common bile duct measures 5 mm. Pancreas: Normal size of the head, body and tail of the pancreas. There is normal echogenicity of the pancreas. There is no demonstrated pancreatic mass or cyst. Right Kidney: Normal size of the right kidney. The right kidney measures 13.5 cm x 5.8 cm x 6.8 cm. Normal renal cortex. The right cortex measures 2.3 cm. There is no demonstrated renal mass or cyst. There is no right hydronephrosis. Incidental note is made of a 7 mm x 8 mm x 6 mm calculus in the midpole index of the right kidney US/Abdomen Limited IMPRESSION: Borderline hepatomegaly and fatty infiltration of the liver. 8 mm x 7 mm x 6 mm nonobstructive calculus in the midpole calyx of the right kidney. Electronically Signed: Kiran Castellano MD at 11:21 EDT ,
--- NOTE | 2022-12-25 07:59 | US_ITS ---
STUDY: ABDOMINAL ULTRASOUND - ELASTOGRAPHY REASON FOR VISIT: Male, 62 years old. Fatty infiltration of the liver. TECHNIQUE: Liver stiffness measurements were obtained on a Spinal Modulation RS 85 ultrasound machine using a CA 1-7 probe following the SRU guidelines. 3 measurements were obtained using a 2-D-SWE method. TheIQR/M was 21 % suggesting a quality data set. TECHNICAL QUALITY: Adequate. COMPARISON: Comparison is made with prior study done earlier today. FINDINGS: Liver: Fatty infiltration of the liver. Median liver stiffness measured 9.6 kPa. Abdomen: There is no demonstrated mass lesion. US/Elastography Parenchyma/Organ IMPRESSION: Liver stiffness measures 9.6 kPa compatible with F2-F3 (Mild to moderate liver fibrosis) Metavir score. Electronically Signed: Kiran Castellano MD at 11:23 EDT ,
== END | disposition home or self-care (01) ==
LOC: US 07:58
PROVIDERS: PCP Internal Medicine; Visit Provider Internal Medicine
DX: R74.8 Abnormal levels of other serum enzymes (principal); R76.0 Raised antibody titer
CPT/HCPCS: 76705; 76981

== ENCOUNTER → 2022-12-30 | Outpatient (CLI) | payer OTHER, SELFPAY ==
[2023-01-01 09:09] LABS: Hepatitis A AB, Total Negative (Negative); Hepatitis A IgM Antibody Positive (Negative)
== END | disposition home or self-care (01) ==
PROVIDERS: PCP Internal Medicine; Referring Provider Internal Medicine Gastroenterology; Visit Provider Internal Medicine Gastroenterology
DX: B15.9 Hepatitis A without hepatic coma (principal)
CPT/HCPCS: 36415; 86708; 86709

== ENCOUNTER → 2023-01-12 | Outpatient (CLI) | payer OTHER, SELFPAY | END | disposition home or self-care (01) | LOC: MTLAB 13:20 | PROVIDERS: PCP Internal Medicine; Referring Provider Internal Medicine Gastroenterology; Visit Provider Internal Medicine Gastroenterology | DX: K76.0 Fatty (change of) liver, not elsewhere classified (principal); B15.9 Hepatitis A without hepatic coma; R76.8 Other specified abnormal immunological findings in serum ==

== ENCOUNTER → 2023-02-25 | Outpatient (CLI) | payer OTHER, SELFPAY ==
[2023-02-25] VITALS (9 sets, daily range): BP systolic 96–125; BP diastolic 55–81; PULSE 54–64; RESP 12–16; TEMP 36.5; O2SAT 94–98; BMI 34.5
--- NOTE | 2023-02-25 08:02 | CT_ITS ---
PROCEDURE: CT DIRECTED CORE LIVER BIOPSY INDICATION: Male, 62 years old. HEPATITIS FATTY LIVER CAROLYN PHYSICIAN: Dr. Nona Jones CONSENT: Written informed consent was obtained having explained the risks, benefits and alternatives in detail with the patient who accepted the risks and agreed to proceed. Laboratory review and clinical assessment was performed. CONSCIOUS SEDATION PROTOCOL: The Drugs used were: 2 mg Versed, IV., and 50 mcg Fentanyl, IV. The sedation time was: 15 minutes. Conscious sedation was started at 8:52 AM and terminated at 9:07 AM. The conscious sedation protocol was independently monitored. RADIATION DOSAGE (If Supplied By Facility): CTDIvol = ( 22 ) mGy, DLP = ( 645.8 ) mGycm Individualized dose optimization techniques were used for this CT. TECHNIQUE: Using CT image guidance with image documentation, a suitable location in the right lobe of the liver was identified. Using an anterior approach, puncture of the liver was uneventful with an 18-gauge core needle system. 3, 18-gauge core samples were obtained, and submitted in formalin to the pathologist for further assessment. Followup CT scan revealed no distinct sequelae. CT/Biopsy/Inj or Needle Placement IMPRESSION: 1. CT directed core needle biopsy of the liver, using CT image guidance with image documentation as described. 2. Conscious Sedation protocol utilized with independent monitoring. Electronically Signed: Kiran Castellano MD at 9:36 EDT ,
[2023-02-25 08:06] LABS: Platelet Count 158 K/mm3 (150-450)
[2023-02-25 08:14] LABS: Prothrombin Time (Protime)PT. 12.9 SECONDS (11.7-14.9)
[2023-02-25 08:15] LABS: Partial Thromboplast Time 29.1 Seconds (24.1-36.2)
[2023-02-25] MEDS: Midazolam 2 MG/2 ML Syringe IV (08:53)
[2023-02-25] MEDS: fentaNYL 100 MCG/2 ML Ampul IV (08:53)
[2023-02-25] MEDS: Lidocaine 2% (20 ml mdv) 20 ML Vial INFILT (08:58)
--- NOTE | 2023-02-25 09:10 | LIVB_PTH ---
PATIENT: MYNOR BERTRAND LOC: CT U#:[id number] AGE/SX: 62/M ROOM: RE02/25/[address]: Dr. Navneet Corona MD : 1960 BED: DIS: 02/25/2023 SPEC #: [id number] RECD: 02/25/23 09:42 STATUS: CARINE MODESTA #: [id number] KASSIDY: 02/25/23 09:[address]: Navneet Corona DEPT: SURGICAL PATHOLOGY RECD BY: Carmelo Pinon ENTERED: 02/25/23 11:23 SP TYPE: LIVER BX OTHR DR: Dr. Dai Toure DO Tissues: Liver, NOS Procedures: PAS with Diastase (control) Trichrome (control) Special Stain Group II PAS Stain (control) Surgery Specimen Level V Retic (control) Iron Stain (control) HEADER OPERATION: CT-guided liver biopsy PRE-OP DIAGNOSIS: Fatty liver, hepatitis TISSUE SUBMITTED: Liver 18-gauge x3 MICROSCOPIC DIAGNOSIS Liver, CT-guided core biopsy: Liver parenchymal tissue with extensive macrovesicular steatosis and focal bridging fibrosis. See microscopic description and comment. SJ:rg 02/26/2023 COMMENT If there is high suspicion of biliary cirrhosis, correlation with laboratory studies is suggested. Correlation with clinical, radiologic, laboratory findings and appropriate follow up are necessary. This case was discussed with Dr. Corona on 03/19/2023. MICROSCOPIC DESCRIPTION Slides are reviewed. The specimen shows liver parenchymal tissue with preserved lobular architecture. The hepatocytes show reactive changes and extensive macrovesicular steatosis. Focal lobular inflammation is noted. Portal area shows moderate chronic inflammation consisting predominantly of lymphocytes. A few of the portal areas also show bile duct destruction. Focal interface inflammation is noted. Trichrome stain shows increased portal, periportal and focal bridging fibrosis. Obvious cirrhosis is not seen. Reticulin stain also highlights the increased portal, periportal and focal bridging fibrosis. Iron stain shows absent iron. PAS stain without and without diastase do not show any abnormal accumulation of protein. All stains are performed with appropriate matched controls. GROSS DESCRIPTION Received in fixative is one container labeled with the patient's name and designated liver. The specimen consists of three elongated fragments of thornton soft tissue each measuring 1.5 cm in length and 0.1 cm in diameter. The specimen is totally submitted in one cassette. / TALITA:zulay 02/25/2023 TC:5 CPT: 37930, 44024 x5
== END | disposition home or self-care (01) ==
PROVIDERS: Radiology Diagnostic Radiology; PCP Internal Medicine; Referring Provider Internal Medicine Gastroenterology; Visit Provider Internal Medicine Gastroenterology
DX: K76.0 Fatty (change of) liver, not elsewhere classified (principal); B15.9 Hepatitis A without hepatic coma; R76.8 Other specified abnormal immunological findings in serum
CPT/HCPCS: 47000; 36415; 77012; 85049; 85610; 85730; 88307; 88313; 99156; J7050

== ENCOUNTER → 2023-04-02 | Outpatient (CLI) | payer OTHER, SELFPAY ==
[2023-04-07 21:12] LABS: Pancreatic Elastase, Fecal 282 (>200)
== END | disposition home or self-care (01) ==
LOC: LABSPEC 15:02
PROVIDERS: PCP Internal Medicine; Referring Provider Student in an Organized Health Care Education/Training Program; Visit Provider Student in an Organized Health Care Education/Training Program
DX: K74.00 Hepatic fibrosis, unspecified (principal); B15.9 Hepatitis A without hepatic coma
CPT/HCPCS: 82653

== ENCOUNTER → 2023-06-24 | Outpatient (CLI) | payer OTHER, SELFPAY ==
--- NOTE | 2023-06-24 08:17 | US_ITS ---
STUDY: ABDOMINAL ULTRASOUND - RIGHT UPPER QUADRANT REASON FOR VISIT: Male, 62 years old abnormal LFTs TECHNIQUE: Ultrasound evaluation of the right upper quadrant was performed with real-time and static yin-scale imaging. TECHNICAL QUALITY: Limited. Examination limited by bowel gas. COMPARISON: None. FINDINGS: Liver: The liver measures 14.5 cm. There is increased echogenicity consistent with fatty infiltration. The bile ducts are within normal limits. There is hepatic color flow. The direction of portal flow is hepatopetal. There is no demonstrated mass lesion. Gallbladder: Normal distended gallbladder. The gallbladder wall measures 1.7 mm. There is a negative sonographic Durbin''s sign. There is no pericholecystic fluid. There are no gallstones. Common Bile Duct (C.B.D.): The common bile duct measures 3.4 mm. Pancreas: Visualized pancreas is nonspecifically echogenic Right Kidney: Normal size of the right kidney. The right kidney measures 12.7 x 6 x 6.6 cm. Normal renal cortex. The right cortex measures 1.7 cm. There is no demonstrated renal mass or cyst. There is no right hydronephrosis, there is a nonobstructing 8 mm stone. US/Abdomen Limited IMPRESSION: Fatty liver, no discrete lesion Nonspecific echogenic pancreas suggests previous pancreatitis Nonobstructing right nephrolithiasis Electronically Signed: Brandon Paredes MD at 16:19 EDT ,
== END | disposition home or self-care (01) ==
LOC: US 08:16
PROVIDERS: PCP Internal Medicine
DX: K74.00 Hepatic fibrosis, unspecified (principal); B15.9 Hepatitis A without hepatic coma
CPT/HCPCS: 76705

== ENCOUNTER → 2023-11-01 | Outpatient (CLI) | payer OTHER, SELFPAY ==
--- NOTE | 2023-11-01 12:56 | ECHOCS_ITS ---
Reason For Study: SOB Procedure This was a 2D Doppler, Color Flow transthoracic echocardiogram. The study was technically difficult. Exam performed in department. Left Ventricle Normal LV size. Left ventricular systolic function is normal. The estimated ejection fraction is 66 %. Stage 2 diastolic dysfunction. No regional wall motion abnormalities noted. Right Ventricle Normal RV size. Normal systolic function. Atria Normal left atrium. Normal right atrium. Mitral Valve Normal mitral valve. Tricuspid Valve Normal tricuspid valve. Mild (1+) tricuspid valve insufficiency. Pulmonary artery systolic pressure is 35 mmHg. Aortic Valve Trisinus/trileaflet aortic valve. Pulmonic Valve Normal pulmonic valve. Great Vessels Normal aortic root. The pulmonary artery is normal size. Inferior vena cava collapse with respiration. Pericardium/Pleural No pericardial effusion. Medication 22 gauge I.V. with prn adaptor inserted into left arm. Diluted definity 3.5ml given slow IV push to enhance endocardial definition. MMode/2D Measurements & Calculations LVIDd: 4.9 cm IVSd: 1.1 cm Ao root diam: 3.2 cm LVIDs: 3.3 cm LVPWd: 1.1 cm RVDd: 3.7 cm FS: 33.0 % LAV(MOD-bp): 39.2 ml LVAd ap4: 35.6 cm2 SV(MOD-sp4): 81.1 ml LAV(MOD-bp) Indexed: 16.6 ml/m2 LVLd ap4: 8.5 cm LAV(MOD-sp2): 35.3 ml EDV(MOD-sp4): 123.0 ml LAV(MOD-sp4): 40.2 ml EDV(sp4-el): 126.6 ml LVAs ap4: 18.7 cm2 LVLs ap4: 7.0 cm ESV(MOD-sp4): 41.9 ml ESV(sp4-el): 42.5 ml EF(MOD-sp4): 65.9 % EF(sp4-el): 66.4 % SV(sp4-el): 84.1 ml LA A4 area: 16.6 cm2 LA dimension(2D): 3.7 cm RA A4 area: 15.3 cm2 TAPSE: 2.4 cm Time Measurements MV dec time: 0.22 sec Doppler Measurements & Calculations MV E max justin: 84.2 cm/sec Lat Peak E' Justin: 12.2 cm/sec Med Peak E' Justin: 10.3 cm/sec MV A max justin: 79.2 cm/sec E/E' lat: 6.9 E/E' med: 8.2 MV E/A: 1.1 Ao V2 max: 179.6 cm/sec LV V1 max: 146.1 cm/sec PA V2 max: 161.3 cm/sec Ao max P.9 mmHg LV V1 max P.5 mmHg TR max justin: 282.6 cm/sec TR max P.9 mmHg ECHO/Echo Complete W/ Contrast Interpretation Summary Normal LV size. Left ventricular systolic function is normal. The estimated ejection fraction is 66 %. Stage 2 diastolic dysfunction. Pulmonary artery systolic pressure is 35 mmHg. Contrast injection was performed. Ordering Physician: Bob Brandt V Referring Physician: ELMER PALACIOS Performed By: Ca Marr RDCS
== END | disposition home or self-care (01) ==
LOC: CVS 12:55
PROVIDERS: PCP Internal Medicine; Referring Provider Internal Medicine Pulmonary Disease; Visit Provider Internal Medicine Pulmonary Disease
DX: R06.02 Shortness of breath (principal); G47.31 Primary central sleep apnea
CPT/HCPCS: 93306; Q9957; A4216; C8929

== ENCOUNTER → 2023-12-22 | Outpatient (CLI) | payer OTHER, SELFPAY ==
--- NOTE | 2023-12-22 07:31 | US_ITS ---
STUDY: ABDOMINAL ULTRASOUND - RIGHT UPPER QUADRANT REASON FOR VISIT: Male, 62 years old Biliary cirrhosis, unspecified` TECHNIQUE: Ultrasound evaluation of the right upper quadrant was performed with real-time and static yin-scale imaging. TECHNICAL QUALITY: Adequate. COMPARISON: Comparison is made with prior study dated June 24, 2023. FINDINGS: Liver: The liver is enlarged and measures 18 cm. There is increased echogenicity consistent with fatty infiltration. The bile ducts are within normal limits. There is hepatic color flow. The direction of portal flow is hepatopetal. There is no demonstrated mass lesion. Gallbladder: Normal distended gallbladder. The gallbladder wall measures 2.6 mm. There is a negative sonographic Durbin''s sign. There is no pericholecystic fluid. There are no gallstones. Common Bile Duct (C.B.D.): The common bile duct measures 3.4 mm. Pancreas: Normal size of the head, body and tail of the pancreas. There is increased echogenicity of the pancreas. There is no demonstrated pancreatic mass or cyst. Right Kidney: Normal size of the right kidney. The right kidney measures 12.8 cm x 5.9 cm x 6.4 cm. Normal renal cortex. The right cortex measures 1.8 cm. There is no demonstrated renal mass or cyst. There is no right hydronephrosis. Stable nonobstructing 8 mm right intrarenal calculus. US/Abdomen Limited IMPRESSION: Hepatomegaly and diffuse fatty infiltration of the liver. Electronically Signed: Kiran Castellano MD at 15:05 EDT ,
== END | disposition home or self-care (01) ==
LOC: US 07:30
PROVIDERS: PCP Internal Medicine; Referring Provider Student in an Organized Health Care Education/Training Program; Visit Provider Student in an Organized Health Care Education/Training Program
DX: K74.5 Biliary cirrhosis, unspecified (principal)
CPT/HCPCS: 76705

== ENCOUNTER → 2024-08-15 | Outpatient (CLI) | payer OTHER, SELFPAY ==
--- NOTE | 2024-08-15 07:26 | US_ITS ---
STUDY: ABDOMINAL ULTRASOUND - RIGHT UPPER QUADRANT; ELASTOGRAPHY REASON FOR VISIT: Male, 63 years old. Fatty infiltration of the liver. TECHNIQUE: Ultrasound evaluation of the right upper quadrant was performed with real-time and static yin-scale imaging. Point quantification shear wave elastography was performed (Predikt). TECHNICAL QUALITY: Adequate. COMPARISON: Comparison is made with prior study dated December 22, 2023. FINDINGS: Liver: The liver measures 17.9 cm. There is increased echogenicity consistent with fatty infiltration. The bile ducts are within normal limits. There is hepatic color flow. The direction of portal flow is hepatopetal. There is no demonstrated mass lesion. Median liver stiffness measured 8.9 kPa. Gallbladder: Normal distended gallbladder. The gallbladder wall measures 2 mm. There is a negative sonographic Durbin''s sign. There is no pericholecystic fluid. There are no gallstones. Common Bile Duct (C.B.D.): The common bile duct measures 6 mm. Pancreas: There is normal echogenicity of the visualized pancreas. There is no demonstrated pancreatic mass or cyst. Right Kidney: Normal size of the right kidney. The right kidney measures 13.5 cm x 6 cm x 6.2 cm. Normal renal cortex. The right cortex measures 1.9 cm. There is no demonstrated renal mass or cyst. There is no right hydronephrosis. There is a 1 cm x 1 cm x 1 cm right renal calculus. US/ABD Limited w/ Elastography IMPRESSION: 1. Liver stiffness measures 8.9 kPa compatible with F2-F3 (Mild to moderate liver fibrosis) Metavir score. 2. Fatty infiltration of the liver. Electronically Signed: Kiran Castellano MD at 14:14 EST ,
== END | disposition home or self-care (01) ==
LOC: US 07:26
PROVIDERS: PCP Internal Medicine; Referring Provider Internal Medicine; Visit Provider Internal Medicine
DX: K76.0 Fatty (change of) liver, not elsewhere classified (principal)
CPT/HCPCS: 76705; 76981

== ENCOUNTER → 2025-04-24 | Outpatient (CLI) | payer MEDICARE, OTHER, SELFPAY ==
[2025-04-24 12:42] LABS: Pro- Brain NATRIURETIC PEPTIDE < 36 pg/mL (<=900)
== END | disposition home or self-care (01) ==
LOC: MTLAB 10:25
PROVIDERS: PCP Internal Medicine; Referring Provider Internal Medicine Pulmonary Disease; Visit Provider Internal Medicine Pulmonary Disease
DX: I27.20 Pulmonary hypertension, unspecified (principal)
CPT/HCPCS: 36415; 83880

== ENCOUNTER → 2025-06-07 | Outpatient (CLI) | payer MEDICARE, OTHER, SELFPAY ==
--- NOTE | 2025-06-07 07:27 | US_ITS ---
PROCEDURE: ABDOMEN LIMITED 06/07/2025 REASON FOR EXAM: HCC SCREENING IN CIRRHOSIS TECHNIQUE: Procedure Code: USABDL Modality: US Procedure: ABDOMEN LIMITED COMPARISON: Limited abdominal ultrasound, 08/15/2024. FINDINGS: Liver: Diffusely echogenic suggesting fatty infiltration. The liver measures 17.6 cm in vertical dimension in the midclavicular line. There is normal hepatopetal flow in the portal venous system. Gallbladder: No stones, sludge, wall thickening or tenderness. Common bile duct: 4 mm Pancreas: Visualized portions are unremarkable. The distal body and tail are obscured by bowel gas. Kidneys: The right kidney measures 12.4 x 5.9 x 5.9 cm. Renal parenchymal thicknesses and echotextures are preserved. No hydronephrosis. Peritoneal Findings: No ascites identified. US/Abdomen Limited IMPRESSION: Enlarged fatty liver. No significant change. Reading Location: [id number]
--- NOTE | 2025-06-07 07:27 | US_ITS ---
PROCEDURE: ABDOMEN LIMITED 06/07/2025 REASON FOR EXAM: HCC SCREENING IN CIRRHOSIS TECHNIQUE: Procedure Code: USABDL Modality: US Procedure: ABDOMEN LIMITED COMPARISON: Limited abdominal ultrasound, 08/15/2024. FINDINGS: Liver: Diffusely echogenic suggesting fatty infiltration. The liver measures 17.6 cm in vertical dimension in the midclavicular line. There is normal hepatopetal flow in the portal venous system. Gallbladder: No stones, sludge, wall thickening or tenderness. Common bile duct: 4 mm Pancreas: Visualized portions are unremarkable. The distal body and tail are obscured by bowel gas. Kidneys: The right kidney measures 12.4 x 5.9 x 5.9 cm. Renal parenchymal thicknesses and echotextures are preserved. No hydronephrosis. Peritoneal Findings: No ascites identified. US/Abdomen Limited IMPRESSION: Enlarged fatty liver. No significant change. Reading Location: [id number]
[2025-06-07 09:39] LABS: Prothrombin Time (Protime)PT. 12.7 SECONDS (11.7-14.9)
[2025-06-07 10:10] LABS: AST(SGOT) 35 U/L (<=37); Alanine Aminotransfer ALT/SGPT 40 U/L (<=46); Albumin, Serum 4.4 g/dL (3.4-4.8); Alkaline Phosphatase 73 U/L (40-129); Anion Gap 12 (5-15); BUN 21 mg/dL (4-19); BUN/Creat Ratio 22.0 RATIO (10-20); Bilirubin, Direct 0.23 mg/dL (0.00-0.30); Calcium,Total 9.5 mg/dL (7.6-11.0); Carbon Dioxide 23.1 mmol/L (21.0-32.0); Chloride 102 mmol/L (98-108); Globulin 2.4 g/dL (2.2-4.2); Glucose 89 mg/dL (70-99); Potassium 3.9 mmol/L (3.3-5.1)
== END | disposition home or self-care (01) ==
PROVIDERS: PCP Internal Medicine; Referring Provider Student in an Organized Health Care Education/Training Program; Visit Provider Student in an Organized Health Care Education/Training Program
DX: K74.5 Biliary cirrhosis, unspecified (principal); K76.6 Portal hypertension; K74.00 Hepatic fibrosis, unspecified
CPT/HCPCS: 36415; 76705; 80048; 80076; 82105; 85610